=== PATIENT | male | born 1995 | race Caucasian/White ===

== ENCOUNTER 2019-04-05 22:56 | Emergency (ER) | payer BC ==
[~2019-04-05] VITALS: Ht 177.8 cm; Wt 86.2 kg
--- NOTE | 2019-04-05 22:59 | NUR ---
PT TAKEN TO BED 4
[2019-04-05 23:05] VITALS: BP 134/84
--- NOTE | 2019-04-05 23:12 | NUR ---
SNELLEN CHART: BOTH EYES- 20/20, LEFT EYE- 20/20 BUT REPORTS DIFFICULTY, RIGHT EYE- 20/20.
--- NOTE | 2019-04-05 23:15 | NUR ---
23 YO M BIB SELF PRESENTS TO ED C/O 8/10 BURNING LEFT EYE PAIN AND BLURRED VISION X 1 DAY. PT STATES HE WAS WORKING IN A [employer] PULLING A BOLT OFF AND GOT SPRAYED BY KROIL OIL AND POSSIBLY METAL FLAKES LODGED IN LEFT EYE. REDNESS NOTED TO SCLERA. PERRLA. REPORTS CLEAR, WATERY DISCHARGE. SKIN PINK, WARM, DRY. BREATHING EVEN, UNLABORED. NO S/SX DISTRESS. PMH- SKULL FX, HX OF DRUG ABUSE; 1 YEAR CLEAN
[2019-04-05] MEDS: FLUORESCEIN OPTH STRIP 1 MG OP ONE (23:26)
[2019-04-05] MEDS ORDERED: FLUORESCEIN OPTH STRIP 1 MG ONE (23:26)
--- NOTE | 2019-04-05 23:26 | NUR ---
Dr. Proctor examining patient.
[2019-04-05] MEDS: TETRACAINE HCL/PF 0.5% OPTH 4 ML BTL OP ONE (23:39)
[2019-04-05 23:55] VITALS: BP 134/84
--- NOTE | 2019-04-05 23:55 | NUR ---
Patient discharged with v/s stable. Written and verbal after care instructions given and explained. Patient alert, oriented and verbalized understanding of instructions. Ambulatory with steady gait. All questions addressed prior to discharge. ID band removed. Patient advised to follow up with PMD. Rx of motrin, erythromycin given. Patient educated on indication of medication including possible reaction and side effects. Opportunity to ask questions provided and answered.
== END 2019-04-05 23:55 | disposition home or self-care (01) ==
LOC: MED 22:56
DX: H10.212 Acute toxic conjunctivitis, left eye (principal); Z98.890 Other specified postprocedural states
CPT/HCPCS: 99282